=== PATIENT | male | born 1945 | race Caucasian/White ===

== ENCOUNTER 2023-07-27 14:17 | Emergency (ER) | payer MEDICARE, SELFPAY ==
--- NOTE | ~2023-07-27 | CT_ITS ---
EXAMINATION: CT facial & cervical spine wo DATE: 07/27/2023 18:13 INDICATION: fall, hi, lac above l eyebrow TECHNIQUE: Computed tomography (CT) of the maxillofacial region and cervical spine was performed with out intravenous contrast. Automated exposure control and iterative reconstruction technique were empl oyed. The dose-length product was 229.70 mGy-cm. COMPARISON: None FINDINGS: CERVICAL: Vertebral Body Alignment: 3 mm anterolisthesis at C4-5, likely on a degenerative basis. Craniocervical and atlantoaxial alignment: Moderate degenerative change. Alignment intact. Osseous structures/fracture: No evidence of a lytic or blastic process in the visualized spine. No e vidence of acute fracture. Cervical soft tissues: The paraspinal soft tissues planes are maintained. Degenerative changes: Multilevel moderate and severe degenerative disc disease. Multilevel moderate f acet arthropathy. Bilateral facet fusion at C4-5. Multilevel severe bilateral neural foraminal narrow ing. No severe central canal narrowing. FACE: Soft Tissues: No significant superficial soft tissue swelling. Facial bones: No acute fracture. Old healed type III odontoid fracture, with persistent lateral and posterior displacement. No lytic or blastic process. Eyes: The globes are intact. The soft tissue planes of the orbits are maintained. Bilateral lens re placements. Paranasal Sinuses: Ethmoid mucosal thickening, bilateral maxillary retention cyst/polyps, bilateral maxillary mucosal thickening. Foreign Bodies: No radiopaque foreign bodies. Other Findings: None. IMPRESSION: No acute fracture or traumatic malalignment in the cervical spine. No acute facial bone fracture. Reviewed, dictated and finalized at location K. IMPRESSION: No acute fracture or traumatic malalignment in the cervical spine. No acute fac ial bone fracture.
--- NOTE | ~2023-07-27 | CT_ITS ---
EXAMINATION: CT brain wo con DATE: 07/27/2023 18:13 INDICATION: fall, hi, lac above l eyebrow . TECHNIQUE: Computed tomography (CT) of the head was performed without intravenous contrast. The mA wa s adjusted according to patient size. Iterative reconstruction technique was employed. The dose-lengt h product was 605.33 mGy-cm. COMPARISON: None. FINDINGS: No acute intracranial hemorrhage or extra-axial fluid collection. No hydrocephalus, mass, or herniation. No acute ischemic infarct. Unremarkable dural venous sinus attenuation. No acute osseous abnormality. Ethmoid mucosal thickening, the remaining aerated spaces are clear. Moderate atrophy and chronic white matter change. Atherosclerotic intracranial calcification. IMPRESSION: No acute intracranial process. Reviewed, dictated and finalized at location K.
--- NOTE | ~2023-07-27 | CT_ITS ---
EXAMINATION: CT diagnostic chest wo con DATE: 07/27/2023 18:13 INDICATION: L upper chest wall pain s/p fall TECHNIQUE: Computed tomography (CT) of the chest was performed in stomach intravenous contrast. Autom ated exposure control and iterative reconstruction technique were employed. The dose-length product w as 194.49 mGy-cm. COMPARISON: None. FINDINGS: CHEST: Thoracic aorta: Minimal ectasia. Moderate atherosclerotic calcification.. Lung parenchyma and airways: Lungs and airways are clear. Thoracic inlet, axillae and chest wall: No thyroid or soft tissue mass. No axillary lymphadenopathy. Bilateral symmetric gynecomastia. Mediastinum: No mass or lymphadenopathy. Heart and pericardium: Normal heart size. No pericardial effusion. Aortic valve and mitral calcificat ion. Coronary artery calcifications: Heavy. Pleura: No effusion or mass. Upper abdomen: No significant finding. Thoracic bones: No acute osseous finding in the chest. IMPRESSION: No acute thoracic process detected. Reviewed, dictated and finalized at location K.
[2023-07-27 14:20] VITALS: BP 149/102; PULSE 56; RESP 20; TEMP 36.4; O2SAT 98
--- NOTE | 2023-07-27 17:07 | ED.FALL ---
HPI - Fall General Chief Complaint: Fall Stated Complaint: fall Time Seen by Provider: 07/27/23 16:56 Source: patient Mode of arrival: ambulatory Limitations: no limitations History of Present Illness HPI Narrative: Patient is 77 y/o male who presents to the ED with c/o a fall. Patient reports he was out shopping with his family today and was walking up a set of concrete stairs when he tripped and fell, falling forward, hitting his face on the ground. He sustained a laceration above his left eyebrow from his eye glasses. Also sustained an abrasion to his left temporal scalp and skin tears to his left wrist. Denied LOC. He complains of pain to his left side of face, left upper chest wall, denies left shoulder pain, shortness breath, neck or back pain. Denies dizziness, lightheadedness, vision changes, nausea, vomiting. Tetanus up-to-date. Patient takes aspirin 81 mg daily. No other blood thinners. Related Data Allergies Allergy/AdvReac Type Severity Reaction Status Date / Time No Known Allergies Allergy Verified 07/27/23 17:51 Review of Systems Review of Systems: CONSTITUTIONAL: Denies fever, chills, or sweats. ENT: Denies vision changes RESPIRATORY: Denies dyspnea. GASTROINTESTINAL: Denies abdominal pain, nausea, vomiting. SKIN: See HPI MUSCULOSKELETAL: Reports chest wall pain. Denies back pain, neck pain. NEUROLOGIC: See HPI. All systems reviewed & are unremarkable except as noted in HPI and below Exam Narrative: GENERAL: Well appearing, well-nourished, non-toxic, in no acute distress. HEAD: Normocephalic. Small abrasion to L temporal scalp, no active bleeding EYES: PERRL/EOMI, conjunctiva clear. Approx 2cm laceration through L eyebrow, minimal amount of active bleeding. Mild surrounding ecchymosis and swelling. NECK: Neck supple. No significant midline spinal tenderness. RESPIRATORY: Airway patent, respirations nonlabored. Clear to auscultation bilaterally, no rales, rhonchi, wheezing. CARDIOVASCULAR: Regular rate and rhythm without murmurs, rubs, or gallops. Radial pulses easily palpable. MUSCULOSKELETAL: Moves all extremities. No gross deformities. Small area of pinpoint tenderness along left upper anterior chest wall. No palpable bony deformities. SKIN: Warm, dry, normal color. Small, no active bleeding, no larger wounds or lacerations. NEURO: A&O X3. Speech clear. No focal deficits. PSYCHIATRIC: Appropriate mood and affect. Normal interaction. Course Vital Signs Vital signs: Vital Signs Temperature 97.5 F L 07/27/23 14:20 Pulse Rate 56 L 07/27/23 14:20 Respiratory Rate 20 07/27/23 14:20 Blood Pressure 149/102 H 07/27/23 14:20 Pulse Oximetry 98 07/27/23 14:20 Oxygen Delivery Room Air 07/27/23 14:20 Temperature 97.5 F L 07/27/23 14:20 Pulse Rate 61 07/27/23 19:24 Respiratory Rate 20 07/27/23 19:24 Blood Pressure 172/84 H 07/27/23 19:24 Pulse Oximetry 98 07/27/23 19:24 Oxygen Delivery Room Air 07/27/23 14:20 Procedures Laceration Laceration 1: Date: 07/27/23 Time: 19:30 Site: face Side (If applicable): left (eyebrow) Size (cm): 2 Description: linear Depth: simple, single layer Local Anesthetic: lidocaine 1% Amount of anesthesia used (mL): 5 Pre-repair: wound explored and irrigated ====== Skin Level ====== Skin layer closed with: nylon Size (cm): 5-0 Number of sutures: 6 Technique: simple, interrupted ====== Subcutaneous Layer ====== ====== Muscle Layer ====== ====== Tendon Layer ====== MDM - Fall MDM Narrative Medical decision making narrative: Patient presented to ED status post ground level mechanical fall with head injury, laceration to left eyebrow. Patient neurologically intact. In no acute distress. Vital signs are stable. Tetanus up-to-date. CT brain without acute traumatic findings. CT facial bones and cervical spine a
--- NOTE | 2023-07-27 17:34 | ECG_ITS ---
Measurements Intervals [place] Rate: 54 P: 20 MT: 151 QRS: 15 QRSD: 96 T: 58 QT: 484 QTc: 459 Interpretive Statements SINUS BRADYCARDIA WITH SINUS ARRHYTHMIA DELAYED PRECORDIAL R/S TRANSITION BASELINE ARTIFACT- I, II, III, AVR, AVL, AVF, V1 BORDERLINE ECG NO PREVIOUS ECG AVAILABLE FOR COMPARISON Electronically Signed On 07-27-2023 18:56:08 CDT by Ba Mondragon D.O.
--- NOTE | 2023-07-27 19:19 | PC.NURSE ---
this rn assumed care of patient. this rn took patient report from KRUNAL Peters.
[2023-07-27 19:24] VITALS: BP 172/84; PULSE 61; RESP 20; O2SAT 98
== END 2023-07-27 20:10 | disposition home or self-care (01) ==
PROVIDERS: Emergency Provider Physician Assistant
DX: S01.112A Laceration without foreign body of left eyelid and periocular area, initial encounter (principal); S61.512A Laceration without foreign body of left wrist, initial encounter; Z79.82 Long term (current) use of aspirin; R00.1 Bradycardia, unspecified; W10.9XXA Fall (on) (from) unspecified stairs and steps, initial encounter
CPT/HCPCS: 12011; 70450; 70486; 71250; 72125; 93005; 99284